=== PATIENT | female | born 1935 | race Caucasian/White ===

== ENCOUNTER 2018-11-07 11:35 | Inpatient (IN) ==
--- NOTE | 2018-11-07 12:45 | ED ---
HPI General Chief Complaint: Respiratory Symptoms Stated Complaint: COPD/Asthma/Mucous in Chest x3wks Time Seen by Provider: 11/07/18 12:04 History of Present Illness HPI Narrative: This is a an 83-year-old female who presents today with complaints of cough and congestion and shortness of breath times 3 weeks. Patient states that she is been seen by her primary doctor who is prescribed her a cephalosporin twice as well as prednisone and Tessalon Perles. She reports that it has not improved. She reports that the shortness of breath is associated with wheezing. There is no reported fever she states is gotten as high as 102. She also reports productive green phlegm. There is no nausea vomiting diarrhea. Patient states that it hurts when she coughs and when she looked lays flat it is difficult to breathe. No other complaints at the time of my examination. Related Data Home Medications Medication Instructions Recorded Confirmed benzonatate 100 mg PO TID PRN 11/07/18 11/07/18 ondansetron 4 mg PO TID PRN 11/07/18 11/07/18 prednisone 20 mg PO DAILY 11/07/18 11/07/18 Allergies Allergy/AdvReac Type Severity Reaction Status Date / Time aspirin Allergy Severe Nausea/Vomi Unverified 04/24/17 16:13 ting codeine Allergy Severe NAUSEA Unverified 04/24/17 16:13 Review of Systems ROS: all other systems reviewed are negative Constitutional Denies chills and Reports fever(s) Eyes Reports system reviewed and no additional complaints, except as [facility] ENT Reports system reviewed and no additional complaints, except as [facility] Cardiovascular Denies chest pain and Reports dyspnea Respiratory Reports change in phlegm color (Yellow-green), Reports chest congestion, Reports cough, Reports excessive phlegm production, Reports pain with cough and Reports dyspnea Gastrointestinal Reports system reviewed and no additional complaints, except as [facility] Genitourinary Reports system reviewed and no additional complaints, except as [facility] Musculoskeletal Reports system reviewed and no additional complaints, except as [facility] Neurologic Reports system reviewed and no additional complaints, except as [facility] Medical History Medical History COPD (chronic obstructive pulmonary disease) (Acute) Surgical History Surgical History History of rotator cuff surgery (Acute) Social History Social History Substance History: No History of Abuse Smoking Status: Never smoker How Often Do You Have a Drink Containing Alcohol: Never Recent Travel in [facility] within the Last 8 Weeks: No Recent Out of Country Travel within the Last 8 Weeks: No Immunization History Tetanus Immunization: >5 Years Exam Narrative Exam Narrative: GENERAL: Well developed well-nourished elderly female in moderate respiratory discomfort SKIN: Focused skin assessment warm/dry. HEAD: Atraumatic. Normocephalic. EYES: No scleral icterus. No injection or drainage. ENT: No nasal discharge. Mucous membranes pink and moist. NECK: Trachea midline. Supple. CARDIOVASCULAR: Sinus tachycardia with a rate in the 90s. No murmur appreciated. RESPIRATORY: No accessory muscle use. Coarse rhonchi bilaterally. Fine rales heard at the left base. GASTROINTESTINAL: Abdomen soft, non-tender, nondistended. MUSCULOSKELETAL: No obvious deformities. No clubbing. No cyanosis. No edema. NEUROLOGICAL: Awake and alert. No obvious cranial nerve deficits. Motor grossly within normal limits. Normal speech. Course Initial Documented Vital Signs Temperature 98.0 F 11/07/18 11:43 Pulse Rate 94 H 11/07/18 11:43 Respiratory Rate 16 11/07/18 11:43 Blood Pressure 170/77 H 11/07/18 11:43 Pulse Oximetry 95 11/07/18 11:43 Last Documented Vital Signs Temperature 98.0 F 11/07/18 11:43 Pulse Rate 107 H 11/07/18 13:25 Respiratory Rate 20 11/07/18 13:25 Blood Pressure 149/59 H 11/07/18 13:25 Pulse Oximetry 94 L 11/07/18 13:25 Medical Decision Making MDM Narrative Medical decision making narrative: 83-year-old female presents with worsening cough and congestion. Patient has crackles and rales in her left lower lung field. Patient's white count 17.3. She has green sputum that is worsened. O2 sat was 94% on room air. The patient was tachypneic and tachycardic. The patient will be admitted for pneumonia. She is failed outpatient treatment. Case was discussed with the [facility] hospitalist who agrees with the full admission. Medical Screen Exam Complete: Yes Emergency Medical Condition: Yes Differential Diagnosis Differential Diagnosis: Bronchitis versus pneumonia versus reactive airway disease Lab Data Result diagrams: 11/07/18 12:37 11/07/18 12:37 Lab Results 11/07/18 11/07/18 Range/Units 12:37 12:37 CBC w Diff Auto diff final WBC 17.3 H (4.0-11.0) th/mm3 RBC 4.67 (4.00-5.30) mil/mm3 Hgb 13.6 (11.6-15.3) gm/dL Hct 40.1 (35.0-46.0) % MCV 85.8 (80.0-100.0) fL MCH 29.2 (27.0-34.0) pg MCHC 34.1 (32.0-36.0) % RDW 11.9 (11.6-17.2) % Plt Count 304 (150-450) th/mm3 MPV 7.7 (7.0-11.0) fL Neut % (Auto) 93.4 H (16.0-70.0) % Lymph % (Auto) 4.3 L (9.0-44.0) % [place] % (Auto) 1.6 (0.0-8.0) % Eos % (Auto) 0.1 (0.0-4.0) % Baso % (Auto) 0.6 (0.0-2.0) % Neut # (Auto) 16.2 H (1.8-7.7) th/mm3 Lymph # (Auto) 0.7 L (1.0-4.8) th/mm3 [place] # (Auto) 0.3 (0.0-0.9) th/mm3 Eos # (Auto) 0.0 (0.0-0.4) th/mm3 Baso # (Auto) 0.1 (0.0-0.2) th/mm3 WBC Differential . Differential Comment . Sodium 139 (136-145) meq/L Potassium 3.8 (3.5-5.1) meq/L Chloride 105 (98-107) meq/L Carbon Dioxide 29.0 (21.0-32.0) meq/L Anion Gap 5 (5-15) meq/L BUN 13 (7-18) mg/dL Creatinine 0.63 (0.50-1.00) mg/dL Estimated GFR Greater than 89 (>89) mL/min Random Glucose 101 (74-106) mg/dL Calcium 9.5 (8.5-10.1) mg/dL Total Bilirubin 0.3 (0.2-1.0) mg/dL AST 15 (15-37) U/L ALT 28 (10-53) U/L Alkaline Phosphatase 111 (45-117) U/L Total Protein 7.8 (6.4-8.2) g/dL Albumin 3.5 (3.4-5.0) g/dL Imaging Data Radiologist's impression: Chest X-Ray 11/07/18 12:21 CONCLUSION: Bilateral parenchymal scarring and hyperinflation. Overall stable. Discharge Plan Discharge Order Discharge Orders: ED Use Only Admit Order (Routine); Ordered 11/07/18 Ordered By: Qasim Bailey Physicians Team ED Provider: Qasim Bailey Primary Care Provider: Do Porter Jimenez Rxs /Orders / Referrals /Forms Prescriptions: No Action prednisone 20 mg Tablet 20 mg PO DAILY RF: 0 benzonatate 100 mg Capsule 100 mg PO TID PRN (Reason: Cough) RF: 0 ondansetron 4 mg Tablet,Disintegrating 4 mg PO TID PRN (Reason: Nausea) RF: 0 Discharge Interventions Interventions: Vital Signs Last Done: 11/07/18 13:25 Status ED Status: With Doctor
[2018-11-07 12:48] LABS: Baso # (Auto) 0.1 th/mm3 (0.0-0.2); Baso % (Auto) 0.6 % (0.0-2.0); Eos % (Auto) 0.1 % (0.0-4.0); Hematocrit 40.1 % (35.0-46.0); Hemoglobin 13.6 gm/dL (11.6-15.3); Lymph # (Auto) 0.7 th/mm3 (1.0-4.8); Lymph % (Auto) 4.3 % (9.0-44.0); Mean Corpuscular HGB Conc 34.1 % (32.0-36.0); Mean Corpuscular Hemoglobin 29.2 pg (27.0-34.0); Mean Corpuscular Volume 85.8 fL (80.0-100.0); Mean Platelet Volume 7.7 fL (7.0-11.0); Mono # (Auto) 0.3 th/mm3 (0.0-0.9); Mono % (Auto) 1.6 % (0.0-8.0); Neut # (Auto) 16.2 th/mm3 (1.8-7.7); Neut % (Auto) 93.4 % (16.0-70.0); Platelet Count 304 th/mm3 (150-450); Red Blood Count 4.67 mil/mm3 (4.00-5.30); Red Cell Distribution Width 11.9 % (11.6-17.2); White Blood Count 17.3 th/mm3 (4.0-11.0)
[2018-11-07 12:58] LABS: Chloride 105 meq/L (98-107); Potassium 3.8 meq/L (3.5-5.1); Sodium 139 meq/L (136-145)
[2018-11-07 13:02] LABS: Albumin 3.5 g/dL (3.4-5.0); Anion Gap 5 meq/L (5-15); Calcium 9.5 mg/dL (8.5-10.1); Glucose,Random 101 mg/dL (74-106)
[2018-11-07 13:03] LABS: Blood Urea Nitrogen 13 mg/dL (7-18)
[2018-11-07 13:05] LABS: Alanine Aminotransferase 28 U/L (10-53)
[2018-11-07 13:06] LABS: Aspartate Aminotransferase 15 U/L (15-37); Glomerular Filtration Rate Greater Than 89 mL/min (>89)
[2018-11-07 13:07] LABS: Total Protein 7.8 g/dL (6.4-8.2)
[2018-11-07 13:08] LABS: Alkaline Phosphatase 111 U/L (45-117)
--- NOTE | 2018-11-07 13:31 | XR ---
EXAM DATE: 11/07/2018 1:23 PM EST AGE/SEX: 83 years / Female INDICATIONS: . Short of breath, cough, congestion x 3 weeks. CLINICAL DATA: This is the patient's initial encounter. Patient reports that signs and symptoms have been present for 3 weeks and indicates a pain score of 5/10. MEDICAL/SURGICAL HISTORY: Chronic obstructive pulmonary disease. . Rotator cuff. COMPARISON: POI, XR CHEST PA AND LAT, 01/02/2017. POI, CT CHEST W/O CONTRAST, 10/24/2010. . FINDINGS: Hyperinflation. Biapical parenchymal scarring. Calcified granuloma right midlung. Left apical nodular density may be related to scarring, unchanged. CONCLUSION: Bilateral parenchymal scarring and hyperinflation. Overall stable. Electronically signed by: Brandon Valdez MD Board Certified Radiologist 11/07/2018 1:29 PM EST
[2018-11-07] MEDS ORDERED: Azithromycin Inj 500 MG in Sodium Chlor 0.9% Inj 250 ML IV.SIG ONE (14:11)
[2018-11-07] MEDS: Sod Chloride 0.9% Inj 1,000 ML IV.CONT SCH ×2 (16:54→21:33)
--- NOTE | 2018-11-07 18:56 | P.HPIM ---
History of Present Illness Primary Care Physician: Do Porter Jimenez Chief Complaint: Cough and congestion History of Present Illness: 83-year-old female with known history of hyperlipidemia, chronic objective pulmonary disease, degenerative disc disease, sciatic pain who presented to the hospital for evaluation of cough and congestion. Patient indicates that she has been experiencing symptoms for over 2 weeks. She went to her prior medical doctor's office and was prescribed antibiotic and steroid. She indicates that she gets this every year and she notified her primary medical doctor that the medication that she was going to prescribe her did not work last year and that she had to give a different medication. However, the patient's prior medical doctor continue to prescribe her the medication. The patient indicates that she took the medication for 10 days and she did not get any better. She is been having cough, congestion, difficulty breathing, sputum production which is yellow in coloration. Patient has been having difficulty with laying down and sleeping. She states that she has a set up in order to go to sleep because of all the mucus. He has been experiencing fever for the last couple nights. She contacted her primary care doctor who gave her a different medication but she did not get any better so she came to the hospital for evaluation. Patient did have workup done and found to have sepsis by criteria with leukocytosis, tachycardia, upper respiratory infection. Patient was started on empirical antibiotics Rocephin and Zithromax and recommend admission for further evaluation and management. Inpatient Certification Inpatient Certification: I certify that the inpatient services were ordered in accordance with Medicare regulations governing the order. This includes certification that hospital inpatient services are reasonable and necessary and in the case of services not specified as inpatient-only under 42 CFR 419.22(n), that they are appropriately provided as inpatient services in accordance to with the 2-midnight benchmark under 43 CFR 412.3(e) Estimated Total Length of Stay (Days): 2 Plans for Post Hospital Care: Not yet determined Review of Systems Review of Systems: all other systems reviewed are negative Respiratory: Reports change in phlegm color, Reports chest congestion, Reports cough and Reports excessive phlegm production PMFSH Medical History Medical History COPD (chronic obstructive pulmonary disease) (Acute) Degenerative disc disease (Acute) Hyperlipidemia (Acute) Hyperthyroidism (Acute) Peripheral neuropathy (Acute) Surgical History Surgical History History of rotator cuff surgery (Acute) Family History Family History Other No pertinent family history Social History Social History Substance History: No History of Abuse Second Hand Smoke Exposure: No Smoking Status: Never smoker How Often Do You Have a Drink Containing Alcohol: Never Recent Travel in [place] within the Last 8 Weeks: No Recent Out of Country Travel within the Last 8 Weeks: No Immunization History Tetanus Immunization: >5 Years Hx Influenza Vaccine This Season: No Medications and Allergies Allergies Allergy/AdvReac Type Severity Reaction Status Date / Time aspirin Allergy Severe Nausea/Vomi Verified 11/07/18 15:25 ting codeine Allergy Severe NAUSEA Verified 11/07/18 15:25 Home Medications Medication Instructions Recorded Confirmed Type benzonatate 100 mg PO TID PRN 11/07/18 11/07/18 History magnesium 250 mg PO BID 11/07/18 11/07/18 History ondansetron 4 mg PO TID PRN 11/07/18 11/07/18 History potassium 400 mg DAILY 11/07/18 11/07/18 History prednisone 20 mg PO DAILY 11/07/18 11/07/18 History Active Medications: Active Medications Sodium Chloride (Ns Inj) 1,000 mls @ 42 mls/hr IV.CONT .[id number] RENETTA Last Admin: 11/07/18 16:54 Dose: 42 mls/hr Sodium Chloride (Ns Flush) 2 ml IV.FLUSH BID RENETTA Sodium Chloride (Ns Flush) 2 ml IV.FLUSH PRN PRN PRN Reason: FLUSH AFTER USING IV ACCESS Last Admin: 11/07/18 16:55 Dose: 2 ml Physical Exam Vital signs: Vital Signs 11/07/18 11:43 11/07/18 12:40 11/07/18 12:50 Temperature 98.0 F Pulse Rate 94 H 86 93 H Respiratory Rate 16 24 24 Blood Pressure 170/77 H Pulse Oximetry 95 11/07/18 13:01 11/07/18 13:25 11/07/18 15:28 Temperature Pulse Rate 101 H 107 H 94 H Respiratory Rate 22 20 20 Blood Pressure 149/59 H 131/34 L Pulse Oximetry 94 L 94 L 11/07/18 16:00 Temperature 100.2 F H Pulse Rate 86 Respiratory Rate Blood Pressure 137/66 Pulse Oximetry 95 Intake & Output 11/06/18 11/07/18 11/07/18 18:59 06:59 18:59 Intake Total 590 / 590 Balance 590 / 590 Weight 50.6 kg Intake: IV 350 / 350 Azithromycin Inj 500 MG In NS 250 / 250 Inj 250 ML @ 250 mls/hr IV.SIG ONCE ONE Rx#:[id number] Rocephin Inj 1,000 MG In NS Inj 100 / 100 100 ML @ 200 mls/hr IV.SIG ONCE ONE Rx#:[id number] Oral 240 / 240 Other: Date of Last Bowel Movement 11/07/18 Weight On Admission 52.4 kg Narrative: GENERAL: Well-developed, well-nourished, in no acute distress. alert and orientated HEENT: Head is normocephalic without any lesions or masses noted. Facial features are symmetric. Eyes: Pupils equal round reactive to light. Extraocular muscles are intact. Conjunctivae were clear. Oropharyngeal: Pharynx without any erythema edema. Tongue is midline without deviation. Buccal mucosa is moist without any masses or lesions NECK: Supple without any masses. Trachea midline no deviation. No JVD, no bruits are appreciated CARDIAC: Regular rhythm, regular rate. S1/S2 are heard. No murmurs gallops or rubs. LUNGS: Patient does have rhonchi and wheeze noted bilaterally. No rales. No use of accessory muscles on inspiration or expiration. ABDOMEN: Soft, nontender. Nondistended. Bowel sounds heard in all 4 quadrants. No organomegaly or masses. Negative rebound, negative guarding EXTREMITIES: No edema, pulses are equal bilaterally. No cyanosis or clubbing NEUROLOGY: Mood and affect appear appropriate. Cranial nerves II through XII grossly intact. Muscle strength 5/5 in upper and lower extremities bilaterally. Deep tendon reflexes are 2+ in upper and lower extremities bilaterally. Results Labs CBC & Chem 7: 11/08/18 04:55 11/08/18 04:55 Imaging Impressions Chest X-Ray 11/07/18 12:21 CONCLUSION: Bilateral parenchymal scarring and hyperinflation. Overall stable. Caprini VTE Risk Assessment Caprini VTE Risk Assessment: Moderate/High Risk (score >= 2) Caprini Risk Assessment Model: Point Value = 1 Point Value = 2 Point Value = 3 Point Value = 5 Age 41-60 Minor surgery BMI > 25 kg/m2 Swollen legs Varicose veins or History of unexplained or recurrent spontaneous Oral contraceptives or hormone replacement Sepsis (< 1 month) Serious lung disease, including pneumonia (< 1 month) Abnormal pulmonary function Acute myocardial infarction Congestive heart failure (< 1 month) History of inflammatory bowel disease Medical patient at bed rest Age 61-74 Arthroscopic surgery Major open surgery (> 45 min) Laparoscopic surgery (> 45 min) Malignancy Confined to bed (> 72 hours) Immobilizing plaster cast Central venous access Age >= 75 History of VTE Family history of VTE Factor V Leiden Prothrombin [id number] Lupus anticoagulant Anticardiolipin antibodies Elevated serum homocysteine Heparin-induced thrombocytopenia Other congenital or acquired thrombophilia Stroke (< 1 month) Elective arthroplasty Hip, pelvis, or leg fracture Acute spinal cord injury (< 1 month) Prophylaxis Regimen: Total Risk Factor Score Risk Level Prophylaxis Regimen 0-1 Low Early ambulation 2 Moderate Order ONE of the following: *Sequential Compression Device (SCD) *Heparin 5000 units SQ BID 3-4 Higher Order ONE of the following medications: *Heparin 5000 units SQ TID *Enoxaparin/Lovenox 40 mg SQ daily (WT < 150 kg, CrCl > 30 mL/min) *Enoxaparin/Lovenox 30 mg SQ daily (WT < 150 kg, CrCl > 10-29 mL/min) *Enoxaparin/Lovenox 30 mg SQ BID (WT < 150 kg, CrCl > 30 mL/min) AND/OR *Sequential Compression Device (SCD) 5 or more Highest Order ONE of the following medications: *Heparin 5000 units SQ TID (Preferred with Epidurals) *Enoxaparin/Lovenox 40 mg SQ daily (WT < 150 kg, CrCl > 30 mL/min) *Enoxaparin/Lovenox 30 mg SQ daily (WT < 150 kg, CrCl > 10-29 mL/min) *Enoxaparin/Lovenox 30 mg SQ BID (WT < 150 kg, CrCl > 30 mL/min) AND *Sequential Compression Device (SCD) Assessment and Plan Plan Sepsis, failing outpatient treatment Patient met criteria leukocytosis, tachycardia, upper respiratory infection Patient started on empirical antibiotic include Rocephin, Zithromax Influenza testing was negative Obtain blood cultures, Legionella testing, pneumococcal testing, respiratory panel Sputum culture is pending Continue IV fluids Chronic obstructive pulmonary disease with possible exacerbation Duo nebs every 6 hours while awake and every 2 hours as needed Solu-Medrol 40 mg IV every 6 hours Continue O2 s supplementation maintain O2 sats greater than 92% Obtain pro calcitonin level Leukocytosis, Could be secondary to infection versus recent steroid use Continue monitor CBC Thyroid abnormality, degenerative disc disease, sciatica Nursing staff to obtain accurate medication list and update computer Check TSH Ibuprofen as needed for pain DVT prevention Sequential compression devices Discussed Condition With: Patient, nursing staff, Dr. Raza Patient seen and examined with above mid-level provider. The exam, history, and the medical decision making described in the above note were completed with the assistance of the above mid-level provider. I, Charles Raza, attest that I had a [id number] encounter with the patient on the same day and I personally performed all or some portion of the history, exam, or medical decision making. I discussed the case with the above mid-level provider thoroughly after seeing the patient. I have reviewed and agree with the plan please see below for additional input: Rales and rhonchi bilaterally No cyanosis Heart sounds regular rate and rhythm H&P: Quality VTE Deep Vein Thrombosis/Pulmonary Embolism Present on Admission: No
[2018-11-07] MEDS ORDERED: Bisacodyl 10 MG Supp RECTAL PRN (20:00)
[2018-11-07] MEDS ORDERED: Ibuprofen 400 MG Tablet PO PRN (20:00)
[2018-11-07] MEDS ORDERED: Acetaminophen 325 MG Tablet PO PRN (20:00)
[2018-11-07] MEDS: guaiFENesin 600 MG ER Tablet PO SCH (21:35)
[2018-11-07] MEDS: MethylPREDNISolone Sod Succinate Inj 40 MG/ML Vial IV.PUSH SCH (21:37)
[2018-11-07] MEDS: guaiFENesin/Codeine Syrup 200 MG/20 MG 10 ML UDC PO PRN (21:40)
[2018-11-07] MEDS: Temazepam 15 MG Capsule PO PRN (21:43)
[2018-11-08] MEDS: MethylPREDNISolone Sod Succinate Inj 40 MG/ML Vial IV.PUSH SCH ×4 (01:53→21:09)
[2018-11-08] MEDS: guaiFENesin/Codeine Syrup 200 MG/20 MG 10 ML UDC PO PRN ×2 (02:59→14:35)
[2018-11-08 03:13] LABS: Bilirubin,Urine Negative (Negative); Clarity,Urine Clear (Clear); Color,Urine Yellow (Yellw/Straw); Glucose,Urine (UA) Negative (Negative); Leukocyte Esterase,Urine Negative (Negative); Nitrite,Urine Negative (Negative); Urobilinogen,Urine 0.2 mg/dL (Less than 2)
[2018-11-08 03:38] LABS: RBC,Urine 0-3 /hpf (0-3); Squamous Epithelial Cell,Urine 0-5 /hpf (0-5)
[2018-11-08 05:28] LABS: Baso % (Auto) 0.1 % (0.0-2.0); Eos # (Auto) 0.1 th/mm3 (0.0-0.4); Eos % (Auto) 0.7 % (0.0-4.0); Hematocrit 37.6 % (35.0-46.0); Hemoglobin 12.3 gm/dL (11.6-15.3); Lymph # (Auto) 0.4 th/mm3 (1.0-4.8); Lymph % (Auto) 4.7 % (9.0-44.0); Mean Corpuscular HGB Conc 32.6 % (32.0-36.0); Mean Corpuscular Hemoglobin 28.1 pg (27.0-34.0); Mean Corpuscular Volume 86.2 fL (80.0-100.0); Mean Platelet Volume 8.1 fL (7.0-11.0); Mono % (Auto) 0.5 % (0.0-8.0); Neut # (Auto) 8.7 th/mm3 (1.8-7.7); Platelet Count 297 th/mm3 (150-450); Red Blood Count 4.36 mil/mm3 (4.00-5.30); Red Cell Distribution Width 12.3 % (11.6-17.2); White Blood Count 9.2 th/mm3 (4.0-11.0)
[2018-11-08 05:35] LABS: Chloride 109 meq/L (98-107); Potassium 3.9 meq/L (3.5-5.1); Sodium 142 meq/L (136-145)
[2018-11-08 05:56] LABS: Anion Gap 8 meq/L (5-15); Blood Urea Nitrogen 14 mg/dL (7-18); Calcium 8.7 mg/dL (8.5-10.1); Carbon Dioxide 25.3 meq/L (21.0-32.0); Glomerular Filtration Rate Greater Than 89 mL/min (>89); Glucose,Random 143 mg/dL (74-106)
[2018-11-08] MEDS: guaiFENesin 600 MG ER Tablet PO SCH ×2 (08:41→21:09)
[2018-11-08] MEDS: Sod Chloride 0.9% Inj 1,000 ML IV.CONT SCH ×3 (09:33→17:17)
--- NOTE | 2018-11-08 14:26 | P.PNIM ---
Subjective Interval history: 83-year-old female who is seen examined today for sepsis, upper respiratory infection, chronic obstructive pulmonary disease. Patient is doing better than yesterday. States that she is bringing up less phlegm. Still stating that she cannot get rid of the cough. Vital signs are stable. Patient remains afebrile. Physical Exam Vital signs: Vital Signs 11/07/18 15:28 11/07/18 16:00 11/07/18 19:25 Temperature 100.2 F H Pulse Rate 94 H 86 94 H Respiratory Rate 20 18 Blood Pressure 131/34 L 137/66 Pulse Oximetry 94 L 95 96 11/07/18 20:00 11/08/18 00:00 11/08/18 04:00 Temperature 97.4 F L 97.6 F 97.5 F L Pulse Rate 78 80 71 Respiratory Rate 20 20 20 Blood Pressure 120/65 149/66 H 136/76 Pulse Oximetry 94 L 97 95 11/08/18 07:15 11/08/18 08:00 11/08/18 12:00 Temperature 97.1 F L 97.7 F Pulse Rate 77 89 85 Respiratory Rate 18 19 21 Blood Pressure 164/73 H 142/65 H Pulse Oximetry 96 95 96 Intake & Output 11/07/18 11/08/18 11/08/18 18:59 06:59 18:59 Intake Total 590 / 590 1002 / 1002 960 / 960 Output Total 600 / 600 Balance 590 / 590 1002 / 1002 360 / 360 Weight 50.6 kg 51.5 kg Intake: IV 350 / 350 1002 / 1002 NS Inj 1,000 ML @ 100 mls/hr IV 1002 / 1002 .CONT .Q10H RENETTA Rx#:[id number] Azithromycin Inj 500 MG In NS 250 / 250 Inj 250 ML @ 250 mls/hr IV.SIG ONCE ONE Rx#:[id number] Rocephin Inj 1,000 MG In NS Inj 100 / 100 100 ML @ 200 mls/hr IV.SIG ONCE ONE Rx#:[id number] Oral 240 / 240 960 / 960 Output: Urine 600 / 600 Other: # Voids 4 Date of Last Bowel Movement 11/07/18 11/07/18 Weight On Admission 52.4 kg Narrative: GENERAL: Well-developed, well-nourished, in no acute distress. alert and orientated HEENT: Head is normocephalic without any lesions or masses noted. Facial features are symmetric. Eyes: Extraocular muscles are intact. Conjunctivae were clear. NECK: Supple without any masses. Trachea midline no deviation. No JVD, CARDIAC: Regular rhythm, regular rate. S1/S2 are heard. No murmurs gallops or rubs. LUNGS: Patient does continue to have rhonchi and wheeze noted bilaterally. No rales. No use of accessory muscles on inspiration or expiration. ABDOMEN: Soft, nontender. Nondistended. Bowel sounds heard in all 4 quadrants. No organomegaly or masses. Negative rebound, negative guarding EXTREMITIES: No edema, pulses are equal bilaterally. No cyanosis or clubbing NEUROLOGY: Mood and affect appear appropriate. Moving all extremities, speech is clear Results Labs CBC & Chem 7: 11/08/18 04:55 11/08/18 04:55 Labs: Microbiology 11/07/18 19:45 Blood - Peripheral Aerobic Blood Culture - Preliminary No growth in 1 day 11/07/18 19:45 Blood - Peripheral Anaerobic Blood Culture - Preliminary No growth in 1 day 11/07/18 19:45 Blood - Peripheral Aerobic Blood Culture - Preliminary No growth in 1 day 11/07/18 19:45 Blood - Peripheral Anaerobic Blood Culture - Preliminary No growth in 1 day 11/07/18 12:37 Sputum - Expectorated Sputum Gram Stain - Final 11/08/18 03:00 Urine - Random Urine Streptococcus pneumoniae Antigen (M - Final Presumptive negative for streptococcus pneumoniae antigen, suggesting no current or recent infection. Infection due to Streptococcus pneumoniae cannot be ruled out since the antigen present in the sample may be below the detection limit of the test. 11/08/18 03:00 Urine - Random Urine Legionella Antigen - Final Presumptive negative for Legionella pneumophila serogroup 1 antigen in urine, suggesting no recent or recurrent infection. Infection due to Legionella cannot be ruled out since other serogroups and species may cause disease, antigen may not be present in urine in early infection, and the level of antigen present in the urine may be below the detection limit of the test. 11/07/18 12:37 Nasal Wash Influenza Types A,B Antigen - Final Negative for FLU A and B antigen Infection due to influenza A or B cannot be ruled out since the antigen present in the sample may be below the detection limit of the test. Assessment and Plan Plan Sepsis, failing outpatient treatment, resolved Patient met criteria leukocytosis, tachycardia, upper respiratory infection Continue empirical antibiotic include Rocephin, Zithromax Influenza testing, streptococcal testing, Legionella testing was negative Blood cultures are negative for 1 day Sputum culture is pending Continue IV fluids Lactic acid level was mildly elevated at 2.5, continue evaluation until normalized Chronic obstructive pulmonary disease with possible exacerbation Duo nebs every 6 hours while awake and every 2 hours as needed Solu-Medrol 40 mg IV every 6 hours Continue O2 s supplementation maintain O2 sats greater than 92% Pro-calcitonin level 0.03 Leukocytosis, resolved Continue monitor CBC Thyroid abnormality, degenerative disc disease, sciatica Nursing staff to obtain accurate medication list and update computer TSH 0.005, Obtain free T3, free T4 Ibuprofen as needed for pain DVT prevention Sequential compression devices Discussed Condition With: Patient, nursing staff, Dr. Raza Discharge Planning: Anticipate discharge tomorrow if patient continues to improve Progress Note: Quality VTE Deep Vein Thrombosis/Pulmonary Embolism Present on Admission: No
[2018-11-08] MEDS ORDERED: Azithromycin Inj 250 MG in Sodium Chlor 0.9% Inj 250 ML IV.SIG SCH (15:00)
[2018-11-08] MEDS: Temazepam 15 MG Capsule PO PRN (21:09)
[2018-11-08 21:55] LABS: Free T4 (Free Thyroxine) 1.46 ng/dL (0.76-1.46); Triiodothyronine (T3) Free 2.56 pg/mL (2.18-3.98)
[2018-11-09] MEDS: guaiFENesin/Codeine Syrup 200 MG/20 MG 10 ML UDC PO PRN ×2 (00:29→04:34)
[2018-11-09] MEDS: MethylPREDNISolone Sod Succinate Inj 40 MG/ML Vial IV.PUSH SCH ×2 (02:05→08:37)
[2018-11-09] MEDS: Sod Chloride 0.9% Inj 1,000 ML IV.CONT SCH (04:32)
[2018-11-09 07:47] VITALS: TEMP 96.9
[2018-11-09] MEDS: guaiFENesin 600 MG ER Tablet PO SCH (08:37)
[2018-11-09 13:28] VITALS: BP 133/74; PULSE 85; RESP 22; O2SAT 95
== END 2018-11-09 15:27 | disposition home or self-care (01) | DRG 872 ==
LOC: PHED 11:35 → PHEDA 14:20 → PH3 16:01
PROVIDERS: ADMIT Hospitalist; ATTEND Hospitalist
CPT/HCPCS: 71020; 71046; 80048; 80053; 81001; 83605; 84145; 84439; 84443; 84481; 85025; 87040; 87070; 87181; 87185; 87205; 87275; 87276; 87449; 87633; 87804; 94640; 94664; 94665; 94667; 97162; 99285; J0456; J0696; J2920; J7030; J7050